=== PATIENT | female | born 1990 | race Caucasian/White ===

== ENCOUNTER 2018-04-18 13:12 | Emergency (ER) | payer MEDICAID ==
[~2018-04-18] VITALS: Ht 154.9 cm; Wt 60.3 kg
[2018-04-18 13:29] VITALS: Ht 154.9 cm; Wt 60.3 kg
[2018-04-18 14:53] LABS: urine erythrocyte NEGATIVE (NEGATIVE)
[2018-04-18 15:04] LABS: microscopic required? YES
[2018-04-18 15:11] LABS: AMPHETAMINE QUAL UR NONE DETECTED (See below)
[2018-04-18 15:25] LABS: BASOPHIL % 1.3 % (0-2); PLATELET COUNT 206 x10^3mcL (130-400); RED CELL DISTRIBUTION WIDTH 12.7 % (11.5-14.5)
[2018-04-18 15:44] LABS: CALCIUM 9.4 mg/dL (8.5-10.1); CARBON DIOXIDE 29.1 mmol/L (21-32); CHLORIDE SERUM 103 mmol/L (98-107); CREATININE SERUM 0.7 mg/dL (0.6-1.0); GFR1 > 60 mL/min; GLUCOSE SERUM 92 mg/dL (74-106); POTASSIUM SERUM 3.9 mmol/L (3.5-5.1); SODIUM SERUM 138 mmol/L (136-145)
[2018-04-18 15:50] LABS: ALKALINE PHOSPHATASE 76 U/L (46-116); ALT/SGPT 17 U/L (14-59); AMYLASE 44 U/L (25-115); AST/SGOT 15 U/L (15-37); BILIRUBIN TOTAL 0.25 mg/dL (0.20-1.00); LIPASE 97 IU/L (73-393); TOTAL PROTEIN, SERUM 7.8 g/dL (6.4-8.2)
[2018-04-18 16:59] VITALS: BP 97/66
== END 2018-04-18 16:59 | disposition home or self-care (01) ==
LOC: ED 13:12 → EDBD 13:12 → ED 16:59
PROVIDERS: Emergency Medicine
DX: K59.00 Constipation, unspecified (principal); F12.90 Cannabis use, unspecified, uncomplicated
CPT/HCPCS: J1885

== ENCOUNTER 2019-03-31 09:53 | Emergency (ER) | payer MEDICAID ==
[~2019-03-31] VITALS: Ht 152.4 cm; Wt 59.9 kg
[2019-03-31 10:02] VITALS: Ht 152.4 cm; Wt 59.9 kg
[2019-03-31 11:36] LABS: BASOPHIL % 0.5 % (0-2); PLATELET COUNT 176 x10^3mcL (130-400); RED CELL DISTRIBUTION WIDTH 13.1 % (11.5-14.5)
[2019-03-31 11:42] LABS: CARBON DIOXIDE 27.2 mmol/L (21-32); CHLORIDE SERUM 104 mmol/L (98-107); CREATININE SERUM 0.7 mg/dL (0.6-1.0); GFR1 > 60 mL/min; GLUCOSE SERUM 97 mg/dL (74-106); POTASSIUM SERUM 3.8 mmol/L (3.5-5.1); SODIUM SERUM 140 mmol/L (136-145)
[2019-03-31 14:30] VITALS: BP 118/70
== END 2019-03-31 14:30 | disposition home or self-care (01) ==
LOC: ED 09:53
PROVIDERS: Emergency Medicine
DX: M54.41 Lumbago with sciatica, right side (principal); R42 Dizziness and giddiness
CPT/HCPCS: 36415; J1885; Q0092